=== PATIENT | female | born 1990 | race Caucasian/White ===

== ENCOUNTER 2018-06-28 18:34 | Emergency (ER) | payer OTHER ==
[~2018-06-28] VITALS: Ht 170.2 cm; Wt 97.7 kg
[~2018-06-28 18:34] MED LIST: AMOXICILLIN500 MG PO; AUGMENTIN875 MG PO; BACTRIM DS1 TAB PO; CEPHALEXIN500 MG PO; CIPRO500 MG PO; CIPRODEX1 ML AS; CIPROFLOXACN500 MG PO; FLEXERIL PO; FLOMAX0.4 M1 PO; LORTAB 5/3255 MG PO; MACRODANTIN100 MG PO; PHENERGAN25 MG/TAB PO; PRENATA3 PO; ZOFRAN ODT8 MG PO
[2018-06-28 19:35] LABS: IMMATURE GRANULOCYTES 0.7 % (0.0-5.0); MEAN CELL VOLUME 90.3 fL CALC (80.0-100.0); MEAN CORPUSCULAR HGB 32.4 pG CALC (26.0-32.0); MEAN CORPUSCULAR HGB CONC 35.9 g/L CALC (32.0-36.0); NEUT# 8.11 thou/uL (2.00-7.15); RED BLOOD COUNT 4.44 mill/uL (4.20-5.60); RED CELL DISTRI WIDTH 13.1 % (11.5-15.5)
[2018-06-28 19:36] LABS: URINE BILIRUBIN - DIPSTICK NEGATIVE (NEGATIVE); URINE BLOOD DIPSTICK NEGATIVE (NEGATIVE); URINE COLOR YELLOW; URINE GLUCOSE - DIPSTICK NEGATIVE (NEGATIVE); URINE KETONE >=80 mg/dL (NEGATIVE); URINE LEUK ESTERASE NEGATIVE (NEGATIVE); URINE NITRITE - DIPSTICK NEGATIVE (Negative); URINE PROTEIN - DIPSTICK TRACE mg/dL (NEG-TRACE); URINE SPECIFIC GRAVITY >=1.030; URINE UROBILINOGEN - DIPSTICK 0.2 E.U./dL (0.2)
[2018-06-28 19:37] LABS: HEMOGLOBIN 14.4 g/dl (12.0-16.0)
[2018-06-28 19:38] LABS: HEMATOCRIT 40.1 % (37.0-47.0)
[2018-06-28 19:39] LABS: URINE CLARITY CLEAR
[2018-06-28 19:50] LABS: BUN 6 mg/dL (7-17); BUN/CREATININE RATIO 15 (12-20 (CALC)); CARBON DIOXIDE 19 mmol/l (22-30); CHLORIDE 107 mmol/l (95-108); CREATININE 0.4 mg/dL (0.5-1.0); GFR > 60 ML/MIN (>=60 (CALC)); GFR FOR AFR.AMER. > 60 ML/MIN (>=60 (CALC)); POTASSIUM 3.7 mmol/l (3.5-5.1)
[2018-06-28 19:51] LABS: ANION GAP 15 (6-22 (CALC)); SODIUM 137 mmol/l (137-146)
[2018-06-28 20:23] VITALS: BP 106/55
== END 2018-06-28 20:27 | disposition home or self-care (01) ==
LOC: ED 18:34
PROVIDERS: Family Medicine
DX: O98.513 Other viral diseases complicating pregnancy, third trimester (principal); Z3A.34 34 weeks gestation of pregnancy; R11.10 Vomiting, unspecified; B34.9 Viral infection, unspecified; R10.33 Periumbilical pain; O24.419 Gestational diabetes mellitus in pregnancy, unspecified control

== ENCOUNTER 2018-12-05 09:22 | Emergency (ER) | payer OTHER ==
[~2018-12-05] VITALS: Ht 170.2 cm; Wt 90.0 kg
[2018-12-05 09:59] LABS: IMMATURE GRANULOCYTES 0.5 % (0.0-5.0); MEAN CELL VOLUME 90.1 fL CALC (80.0-100.0); MEAN CORPUSCULAR HGB 30.9 pG CALC (26.0-32.0); MEAN CORPUSCULAR HGB CONC 34.3 g/L CALC (32.0-36.0); NEUT# 6.77 thou/uL (2.00-7.15); RED BLOOD COUNT 5.37 mill/uL (4.20-5.60); RED CELL DISTRI WIDTH 12.2 % (11.5-15.5); URINE BILIRUBIN - DIPSTICK NEGATIVE (NEGATIVE); URINE BLOOD DIPSTICK NEGATIVE (NEGATIVE); URINE COLOR YELLOW; URINE GLUCOSE - DIPSTICK NEGATIVE (NEGATIVE); URINE KETONE NEGATIVE (NEGATIVE); URINE LEUK ESTERASE NEGATIVE (NEGATIVE); URINE NITRITE - DIPSTICK NEGATIVE (Negative); URINE PROTEIN - DIPSTICK NEGATIVE (NEG-TRACE); URINE SPECIFIC GRAVITY 1.025; URINE UROBILINOGEN - DIPSTICK 0.2 E.U./dL (0.2)
[2018-12-05 10:00] LABS: HEMATOCRIT 48.4 % (37.0-47.0); HEMOGLOBIN 16.6 g/dl (12.0-16.0)
[2018-12-05 10:14] LABS: ALBUMIN 4.4 g/dL (3.2-5.0); ALKALINE PHOSPHATASE 164 u/l (38-126); ANION GAP 14 (6-22 (CALC)); BILIRUBIN, TOTAL 0.8 mg/dL (0.0-1.4); BUN 14 mg/dL (7-17); BUN/CREATININE RATIO 23 (12-20 (CALC)); CARBON DIOXIDE 26 mmol/l (22-30); CHLORIDE 105 mmol/l (95-108); CREATININE 0.6 mg/dL (0.5-1.0); GFR > 60 ML/MIN (>=60 (CALC)); GFR FOR AFR.AMER. > 60 ML/MIN (>=60 (CALC)); LIPASE 139 u/l (23-300); POTASSIUM 4.1 mmol/l (3.5-5.1); SGOT/AST 22 u/l (14-36); SODIUM 141 mmol/l (137-146); TOTAL PROTEIN 7.4 g/dL (6.3-8.2)
[2018-12-05] MEDS ORDERED: TAMSULOSIN0.4 MG PO (11:17)
[2018-12-05] MEDS ORDERED: PERCOCET 10/31 COMBO PO (11:17)
[2018-12-05 11:45] VITALS: BP 118/68
== END 2018-12-05 11:45 | disposition home or self-care (01) ==
LOC: ED 09:22
PROVIDERS: Emergency Medicine
DX: N20.1 Calculus of ureter (principal); Z87.442 Personal history of urinary calculi

== ENCOUNTER 2020-06-26 12:46 | Emergency (ER) | payer OTHER ==
[~2020-06-26] VITALS: Ht 170.2 cm; Wt 75.0 kg
[~2020-06-26 12:46] MED LIST changes: +PERCOCET 10/31 COMBO PO; +TAMSULOSIN0.4 MG PO
[2020-06-26] MEDS ORDERED: IBUPROFEN600 MG PO (15:15)
[2020-06-26 15:40] VITALS: BP 121/79
== END 2020-06-26 15:40 | disposition home or self-care (01) ==
LOC: ED 12:46
DX: M79.671 Pain in right foot (principal)

== ENCOUNTER 2021-07-03 21:42 | Emergency (ER) | payer OTHER, MEDICAID ==
[~2021-07-03] VITALS: Ht 170.2 cm; Wt 100.0 kg
[~2021-07-03 21:42] MED LIST changes: +IBUPROFEN600 MG PO
[2021-07-03] MEDS ORDERED: ULTRAM50 MG PO (22:50)
[2021-07-03 23:30] VITALS: BP 127/71
== END 2021-07-03 23:30 | disposition home or self-care (01) | DRG 605 ==
LOC: ED 21:42
DX: S20.212A Contusion of left front wall of thorax, initial encounter (principal); V49.40XA Driver injured in collision with unspecified motor vehicles in traffic accident, initial encounter

== ENCOUNTER 2022-07-15 10:36 | Emergency (ER) | payer BC, MEDICAID ==
[~2022-07-15] VITALS: Ht 170.2 cm; Wt 102.2 kg
[~2022-07-15 10:36] MED LIST changes: +ULTRAM50 MG PO
[2022-07-15 10:43] VITALS: BP 117/76
[2022-07-15 10:54] VITALS: BP 116/72
[2022-07-15 11:01] VITALS: BP 100/61
[2022-07-15 11:15] VITALS: BP 114/76
[2022-07-15 11:21] LABS: URINE BILIRUBIN - DIPSTICK NEGATIVE (NEGATIVE); URINE BLOOD DIPSTICK MODERATE (NEGATIVE); URINE COLOR YELLOW; URINE GLUCOSE - DIPSTICK NEGATIVE (NEGATIVE); URINE KETONE TRACE mg/dL (NEGATIVE); URINE LEUK ESTERASE NEGATIVE (NEGATIVE); URINE PROTEIN - DIPSTICK NEGATIVE (NEG-TRACE); URINE SPECIFIC GRAVITY >=1.030; URINE UROBILINOGEN - DIPSTICK 0.2 E.U./dL (0.2)
[2022-07-15 11:22] LABS: URINE NITRITE - DIPSTICK NEGATIVE (Negative)
[2022-07-15 11:23] LABS: URINE EPITHELIAL CELLS FEW EPI/hpf (0-FEW)
[2022-07-15 11:27] LABS: HEMATOCRIT 42.5 % (37.0-47.0); HEMOGLOBIN 15.3 g/dl (12.0-16.0); IMMATURE GRANULOCYTES 0.5 % (0.0-5.0); MEAN CELL VOLUME 88.5 fL CALC (80.0-100.0); MEAN CORPUSCULAR HGB 31.9 pG CALC (26.0-32.0); NEUT# 5.23 thou/uL (2.00-7.15); RED BLOOD COUNT 4.8 mill/uL (4.20-5.60); RED CELL DISTRI WIDTH 12.7 % (11.5-15.5)
[2022-07-15 11:52] LABS: ALBUMIN 4.2 g/dL (3.2-5.0); ALKALINE PHOSPHATASE 177 u/l (38-126); ANION GAP 13 (6-22 (CALC)); BILIRUBIN, TOTAL 0.7 mg/dL (0.0-1.4); BUN 10 mg/dL (7-17); BUN/CREATININE RATIO 16 (12-20 (CALC)); CARBON DIOXIDE 24 mmol/l (22-30); CHLORIDE 107 mmol/l (95-108); CREATININE 0.6 mg/dL (0.5-1.0); GFR FOR AFR.AMER. > 60 ML/MIN (>=60 (CALC)); GFR OTHER RACES > 60 ML/MIN (>=60 (CALC)); LIPASE 130 u/l (23-300); MAGNESIUM 1.7 mg/dL (1.6-2.3); POTASSIUM 3.8 mmol/l (3.5-5.1); SGOT/AST 41 u/l (14-36); SODIUM 140 mmol/l (137-146)
[2022-07-15] MEDS ORDERED: CIPROFLOXACN750 MG PO (12:18)
[2022-07-15] MEDS ORDERED: ZOFRAN4 MG/TAB PO (12:18)
[2022-07-15 13:10] VITALS: BP 114/76
== END 2022-07-15 13:10 | disposition home or self-care (01) | DRG 392 ==
LOC: ED 10:36
PROVIDERS: Emergency Medicine
DX: K52.9 Noninfective gastroenteritis and colitis, unspecified (principal)

== ENCOUNTER 2024-05-24 19:16 | Emergency (ER) | payer OTHER ==
[~2024-05-24] VITALS: Ht 170.2 cm; Wt 104.0 kg
[~2024-05-24 19:16] MED LIST changes: +CIPROFLOXACN750 MG PO; +ZOFRAN4 MG/TAB PO
[2024-05-24] MEDS ORDERED: ACETAMINOPHEN 500 MG TAB PO ONE (20:20)
[2024-05-24] MEDS ORDERED: CYCLOBENZAPRINE HCL 5 MG TAB PO ONE (20:20)
[2024-05-24] MEDS ORDERED: NAPROXEN 250 MG/TAB PO ONE (20:20)
[2024-05-24 20:46] LABS: URINE BILIRUBIN - DIPSTICK Negative (NEGATIVE); URINE BLOOD DIPSTICK Negative (NEGATIVE); URINE GLUCOSE - DIPSTICK Negative (NEGATIVE); URINE KETONE Trace mg/dL (NEGATIVE); URINE LEUK ESTERASE Negative (NEGATIVE); URINE NITRITE - DIPSTICK Negative (Negative); URINE PROTEIN - DIPSTICK Negative (NEG-TRACE); URINE SPECIFIC GRAVITY >=1.030; URINE UROBILINOGEN - DIPSTICK 0.2 E.U./dL (0.2)
[2024-05-24 20:48] LABS: URINE COLOR Yellow
[2024-05-24] MEDS ORDERED: NAPROXEN375 MG PO (21:48)
[2024-05-24] MEDS ORDERED: ORPHENADRINE100 MG PO (21:48)
[2024-05-24 22:16] VITALS: BP 119/73
== END 2024-05-24 22:16 | disposition home or self-care (01) ==
LOC: ED 19:16
PROVIDERS: Family Medicine
DX: S29.012A Strain of muscle and tendon of back wall of thorax, initial encounter (principal); M47.814 Spondylosis without myelopathy or radiculopathy, thoracic region; X58.XXXA Exposure to other specified factors, initial encounter; Z87.442 Personal history of urinary calculi